=== PATIENT | female | born 1980 | race Caucasian/White ===

== ENCOUNTER 2021-02-13 12:02 | Emergency (ER) | payer BC, SELFPAY ==
[2021-02-13 12:12] VITALS: BP 112/78; PULSE 84; RESP 18; TEMP 36.7; O2SAT 98; BMI 31.3
--- NOTE | 2021-02-13 14:23 | PC.NURSE ---
PT EATING [employer], WAS ASKED TO WAIT UNTIL AFTER MD EVALUATION
--- NOTE | 2021-02-13 14:39 | ED_ITS ---
HPI - General Adult General Chief complaint: Dizziness Stated complaint: DIZZY Time Seen by Provider: 02/13/21 14:37 Source: patient and family Limitations: no limitations History of Present Illness HPI narrative: This is a 40-year-old female who had gradual onset of a headache last night while at a alliance party. She said there was ?a lot of commotion? at the alliance party which she believes brought on her headache. She later around 02:00 o'clock in the morning wanted to sleep and had available some 0.5 mg lorazepam tablets, took several. Today the patient was drowsy and lightheaded and continued to have a headache. She is feeling little better now, her friend/family member who is with her states this is the best she has looked all day. She denies any visual changes. She did vomit once this morning, but notes that she was drinking alcohol last night. She denies any abdominal pain. She denies any focal weakness or numbness in her arms or of legs or face. The headache is generalized, dull and associated with some neck pain, however she states the neck pain has been more chronic. She denies fever.. Patient denies being . She also denies any suicidal ideation, states she took the lorazepam simply because she wanted to sleep Related Data Allergies Allergy/AdvReac Type Severity Reaction Status Date / Time No Known Allergies Allergy Unverified 04/22/20 15:04 Review of Systems Review of Systems: Yes all other systems are reviewed and are negative Constitutional: Constitutional: Reports as per HPI, Denies fever(s) and Report s headache(s) Eyes: Eyes: Reports as per HPI and Reports no additional eye complaints ENT: Reports system reviewed and no additional complaints, except as documented, Reports as per HPI, Reports headache(s), Denies nasal congestion, Denies nasal discharge and Denies sore throat Cardiovascular: Cardiovascular: Reports as per HPI, Denies chest pain and Denies dyspnea Respiratory: Respiratory: Reports as per HPI, Denies cough and Denies dyspnea Gastrointestinal: Gastrointestinal: Reports as per HPI, Denies abdominal pain, Denies diarrhea and Reports vomiting (Once this morning) Genitourinary: Genitourinary: Reports as per HPI, Denies hematuria, Denies urinary frequency and Denies dysuria Musculoskeletal: Musculoskeletal: Reports no additional musculoskeletal complaints and Denies numbness Integumentary/Breasts: Skin/Breast: Reports as per HPI and Denies rash Neurologic: Reports as per HPI, Reports headache(s), Denies focal weakness, Denies numbness and Denies Sensory deficit (Neuro) Psychiatric: Psychiatric: Reports no additional psychiatric complaints and Reports as per HPI Endocrine: Endocrine: Reports no additional endocrine complaints and Reports as per HPI Hematologic/Lymphatic: Hematologic/Lymphatic: Reports no additional hematologic/lymphatic complaints, Reports as per HPI and Reports other (No peripheral edema) [facility] Past Medical History Medical History (Updated 02/14/21 @ 00:01 by Background Daemon) Hypothyroid Social History Social History Advance Directives: No Advance Directives Information Provided: Yes Patient : No Physical Exam Vital Signs: Vital Signs: Last Vital Signs Temp 98.0 F 02/13/21 12:12 Pulse 84 02/13/21 12:12 Resp 18 02/13/21 12:12 BP 112/78 02/13/21 12:12 Pulse Ox 98 02/13/21 12:12 Body Mass Index 31.3 Const: Other: Patient is sitting up in a chair, eating a hamburger. Patient appears mildly sedated but answers questions appropriately General: cooperative, no acute distress and alert Orientation/consciousness: patient oriented x3 HENMT: Head: Yes normal to inspection Eyes: General: appearance normal, both eyes and all related structures Eyelids: Yes eyelids normal Conjunctivae: conjunctivae normal Pupils: Equal, round and reactive pupils present Neck: Neck: Yes normal visual inspection and Yes supple Chest: Chest palpation & inspection: normal inspection of the chest Resp: Effort & Inspection: normal respiratory effort Auscultation: clear to auscultation bilaterally Cardio: Rate: regular rate Rhythm: regular rhythm Heart sounds: S1 normal heart sound present, S2 normal heart sound present, no gallops, no murmurs and no rubs GI: Palpation (GI): Soft to palpation, nontender and Other GI palpation findings present (Non-distended) Auscultation: normal bowel sounds Skin: General skin exam: no rashes or lesions noted Neuro: General: patient oriented x3, no focal motor deficits and CN's II-XI intact bilaterally Cranial nerves: Yes Equal, round and reactive pupils present Cognition (Neuro): normal cognition Motor exam (neuro): 5/5 motor strength present throughout Sensory Exam: No Sensory deficit (Neuro) Extrem: General: Yes normal to inspection and Yes no pedal edema Psych: Appearance: grossly normal Affect: normal affect Medical Decision Making MDM Narrative Medical decision making narrative: Patient with an accidental overdose of lorazepam, was trying to make herself sleep, denies suicidal ideation. Patient was initially drowsy but later was sitting up eating lunch. Patient also had some symptoms from having drunk alcohol in excess last night. Patient feeling b eliana upon re-evaluation, safe for outpatient follow-up Lab Data Lab results reviewed: Yes I reviewed the patient's lab results. Result diagrams: 02/13/21 15:09 02/13/21 15:09 Labs: Lab Results 02/13/21 02/13/21 Range/Units 15: 15:09 WBC 10.0 (4.8-10.8) X10*3/uL RBC 4.15 L (4.20-5.50) X10*6/uL Hgb 12.6 (12.0-16.0) g/dl Hct 38.3 (37-47) % MCV 92.3 (80-98) fL MCH 30.4 (27.0-33.0) pg MCHC 32.9 (31.0-35.0) g/dl RDW 13.5 (11.0-16.0) % Plt Count 199 (160-400) X10*3/uL MPV 9.8 (9.4-12.3) fL Immature Gran % (Auto) 0.3 (0.0-0.4) % Neut % (Auto) 78.3 H (45-73) % Lymph % (Auto) 15.8 L (20-40) % [place] % (Auto) 5.4 (2-11) % Eos % (Auto) 0.1 (0-4) % Baso % (Auto) 0.1 (0-2) % Lymph # (Auto) 1.6 (1.2-4.9) X10*3/uL [place] # (Auto) 0.5 (0.1-1.2) X10*3/uL Eos # (Auto) 0.0 (0.0-0.4) X10*3/uL Baso # (Auto) 0.0 (0.0-0.2) X10*3/uL Abs Immat Gran (auto) 0.03 (0.00-0.03) X10*3/uL Absolute Neuts (auto) 7.9 (2.0-8.3) X10*3/uL Absolute Nucleated RBC 0.000 (0.0-0.012) X10*3/uL Nucleated RBC % (auto) 0.0 (0.0-0.2) /100WBC Sodium 141 (135-145) mmol/L Potassium 4.4 (3.3-5.1) mmol/L Chloride 105 (96-108) mmol/L Carbon Dioxide 27 (22-29) mmol/L Anion Gap 13 (12-20) BUN 11 (9-16) mg/dL Creatinine 0.76 (0.5-1.4) mg/dL Estim Creat Clear Calc 96.7 Estimated GFR > 60 Random Glucose 99 (60-115) mg/dL Calcium 9.5 (8.4-10.2) mg/dL Total Bilirubin 1.1 H (0.0-1.0) mg/dL AST 28 (5-31) U/L ALT 28 (0-31) U/L Alkaline Phosphatase 43 (39-117) U/L Total Protein 7.4 (6.5-8.0) g/dL Albumin 4.3 (3.5-5.0) g/dL Discharge Plan Discharge Clinical Impression: Headache, Lorazepam overdose Patient Disposition: Home, Self-Care Instructions: General Headache (ED) Additional Instructions: Use ibuprofen as needed for recurring headache. Drink plenty of fluids. Return for any new or worsened symptoms. Interventions: ED Discharge Assessment Last Done: 02/13/21 16:21 Discharge Date/Time: 02/13/21 16:21
[2021-02-13] MEDS: 0.9 % Sodium Chloride 1,000 ML 999 ML IV (15:13)
[2021-02-13] MEDS: Ketorolac Tromethamine 15 MG/ML VIAL IVPUSH (15:13)
[2021-02-13] MEDS: Metoclopramide HCl 10 MG/2 ML VIAL IVPUSH (15:13)
[2021-02-13 15:14] LABS: MANUAL DIFF FLAG NO
[2021-02-13 15:15] LABS: Basophils Percent Auto 0.1 % (0-2); Eosinophils Percent Auto 0.1 % (0-4); Hematocrit 38.3 % (37-47); Hemoglobin 12.6 g/dl (12.0-16.0); Imm Gran Abs Auto 0.03 X10*3/uL (0.00-0.03); Imm Gran Pct Auto 0.3 % (0.0-0.4); Lymphocytes Absolute Auto 1.6 X10*3/uL (1.2-4.9); Lymphocytes Percent Auto 15.8 % (20-40); Mean Corpuscular HGB Conc 32.9 g/dl (31.0-35.0); Mean Corpuscular Hemoglobin 30.4 pg (27.0-33.0); Mean Corpuscular Volume 92.3 fL (80-98); Mean Platelet Volume 9.8 fL (9.4-12.3); Monocytes Absolute Auto 0.5 X10*3/uL (0.1-1.2); Monocytes Percent Auto 5.4 % (2-11); Neutrophils Absolute Auto 7.9 X10*3/uL (2.0-8.3); Neutrophils Percent Auto 78.3 % (45-73); Platelet Count 199 X10*3/uL (160-400); Red Blood Count 4.15 X10*6/uL (4.20-5.50); Red Cell Distribution Width 13.5 % (11.0-16.0)
[2021-02-13 15:43] LABS: Alanine Aminotransferase 28 U/L (0-31); Albumin Level 4.3 g/dL (3.5-5.0); Alkaline Phosphatase 43 U/L (39-117); Anion Gap 13 (12-20); Aspartate Amino Transferase 28 U/L (5-31); Bilirubin Total 1.1 mg/dL (0.0-1.0); Blood Urea Nitrogen 11 mg/dL (9-16); Calcium 9.5 mg/dL (8.4-10.2); Carbon Dioxide 27 mmol/L (22-29); Chloride 105 mmol/L (96-108); Creatinine Clr Calc Pharmacy 96.7; Estimated Glomerular Filt Rate > 60; Glucose Random 99 mg/dL (60-115); Potassium 4.4 mmol/L (3.3-5.1); Sodium 141 mmol/L (135-145); Total Protein 7.4 g/dL (6.5-8.0)
== END 2021-02-13 16:21 | disposition home or self-care (01) ==
PROVIDERS: Emergency Provider Emergency Medicine; PCP Nurse Practitioner Family
DX: T42.4X1A Poisoning by benzodiazepines, accidental (unintentional), initial encounter (principal); R40.0 Somnolence; Y92.9 Unspecified place or not applicable; R51.9 Headache, unspecified
CPT/HCPCS: 36415; 80053; 85025; 96361; 96374; 96375; 99283; 99284; J1885; J2765

== ENCOUNTER 2024-08-31 17:50 | Emergency (ER) | payer BC, SELFPAY ==
--- NOTE | ~2024-08-31 | US_ITS ---
CLINICAL HISTORY: RUQ pain US abdomen limited Comparison: CT of the abdomen from 10/02 2018 Findings: Question mild intrahepatic biliary ductal dilatation. However, imaged CBD is nondilated measuring 0.5 cm. Mild wall thickening of the gallbladder is likely due to underdistention at the time of the imaging. No pericholecystic fluid at this time. No definite shadowing stones in the gallbladder lumen, where reverberation artifacts are noted. A sonographic Robins's sign is not noted by the technologist. Portions of the gallbladder, including fundus are obscured. Imaged aorta and IVC are unremarkable. No right upper quadrant ascites or right pleural effusion in the [id number]. Majority of the pancreas is obscured. Portions of liver and right kidney obscured by side of the artifacts. Imaged liver measures 17 cm by ultrasound. Portions of the liver demonstrate increased echogenicity relative right kidney as can be seen with steatotic change. Imaged kidney measures 11.1 cm long axis. No hydronephrosis of the imaged kidney. Doppler: Hepatopetal flow in the imaged main portal vein with peak velocity of 40 centimeters/second. No thrombosis of the partially imaged main portal vein. IMPRESSION: 1. Negative gallbladder ultrasound. No definite ultrasound findings of acute cholecystitis, with contracted gallbladder. 2. Imaged CBD is nondilated. This document has been electronically signed by: Rolf Redd MD on 08/31/2024 19:31:13
--- NOTE | ~2024-08-31 | XR_ITS ---
CLINICAL HISTORY: epigastric pain 2 view chest x-ray Comparison: None Findings: No consolidation or effusion. No pneumothorax. Cardiac silhouette and mediastinal contours are within normal limits. No acute fracture. IMPRESSION: No consolidation. This document has been electronically signed by: Rolf Redd MD on 08/31/2024 19:26:56
--- NOTE | 2024-08-31 17:58 | ED_ITS ---
HPI - General Adult General Chief complaint: Abdominal Pain Stated complaint: upper right abd pain x2days Time Seen by Provider: 08/31/24 20:08 Source: patient and family (patient's ) Mode of arrival: ambulatory Limitations: no limitations History of Present Illness ED Provider: Sravani Robledo PA-C HPI narrative: Patient is a 44 year old assigned female at with no reported medical history presenting to the emergency department today with right upper quadrant abdominal pain, epigastric pain, and nausea. Patient states that over the last 2 days she has had right upper quadrant abdominal pain and nausea. Patient denies any dizziness, lightheadedness, vomiting, fever, chills, blurry vision, double vision, loss of vision, chest pain, difficulty breathing, shortness of breath, back pain, night sweats, pain with urination, increased urinary frequency, increased urinary urgency, blood in her urine or stool, syncope or a near syncopal episode, recent trauma or falls, bowel incontinence, bladder incontinence, or any other complaints at this time. Onset (ago): day(s) (2) Relieving factors: none Exacerbating factors: none Associated symptoms: nausea/vomiting Treatments prior to arrival: none Related Data Allergies Allergy/AdvReac Type Severity Reaction Status Date / Time cephalexin [From Keflex] Allergy Nausea and Verified 08/31/24 18:00 Vomiting Review of Systems 2 Constitutional: Constitutional: Reports no additional constitutional complaints, Denies chills, Denies fever(s) and Denies night sweats Eyes: Eyes: Reports no additional eye complaints, Denies blurry vision, Denies change in vision, Denies diplopia, Denies eye discharge, Denies loss of vision and Denies eye pain ENT: Denies dizziness Cardiovascular: Cardiovascular: Reports no additional cardiovascular complaints, Denies chest pain, Denies lightheadedness, Denies Loss of Consciousness and Denies dyspnea Respiratory: Respiratory: Reports no additional respiratory complaints and Denies dyspnea Gastrointestinal: Gastrointestinal: Reports no additional gastrointestinal complaints, Reports abdominal pain, Denies melena, Denies hematochezia, Denies change in bowel habits, Denies change in stool character, Reports nausea and Denies vomiting Genitourinary: Genitourinary: Denies hematuria, Denies urinary frequency, Denies dysuria, Denies urinary incontinence, Denies urinary hesitancy and Denies urinary urgency Musculoskeletal: Musculoskeletal: Reports no additional musculoskeletal complaints, Denies numbness and Denies tingling Neurologic: Denies dizziness, Denies loss of vision, Denies numbness and Denies tingling Psychiatric: Psychiatric: Reports no additional psychiatric complaints Endocrine: Endocrine: Reports no additional endocrine complaints Hematologic/Lymphatic: Hematologic/Lymphatic: Reports no additional hematologic/lymphatic complaints Allergic/Immunologic: Allergic/Immunologic: Reports no additional allergic/immunologic complaints PMFSH Past Medical History Attestation statement: The following information was validated with the patient. Source: old records reviewed and nursing notes reviewed Medical History Hypothyroid Social History Social History Advance Directives: No Advance Directives Information Provided: No Do you have a plan to hurt others: No Plan Physical Exam ED Vital Signs: Vital Signs - 24 hr 08/31/24 17:59 08/31/24 19:22 Temperature 98.5 F 98.1 F Pulse Rate 89 94 Respiratory Rate 18 16 Blood Pressure 117/71 117/73 Pulse Oximetry 98 97 Oxygen Delivery Method Room Air Room Air BMI result Body Mass Index 30.2 Const General: cooperative, no acute distress, alert and awake Nutritional Appearance: well nourished Orientation/consciousness: patient oriented x3 Limitations: no limitations HENMT Head: Yes normal to inspection and Yes atraumatic Ears: hearing grossly normal bilaterally and external ears normal General nose exam: Normal external nose present, no nasal discharge noted and no epistaxis Face and sinus: Yes normal facial exam, No abrasion and No laceration Mouth: Normal oral and palatal mucosa present, no drooling and no muffled voice Eyes General: appearance normal, both eyes and all related structures Periorbital: periorbital findings normal Eyelids: Yes eyelids normal Conjunctivae: conjunctivae normal Pupils: Equal, round and reactive pupils present EOM: EOMs intact bilaterally Neck Neck: Yes normal visual inspection, Yes full ROM and Yes no lymphadenopathy Chest Chest palpation & inspection: normal inspection of the chest Resp Effort & Inspection: normal respiratory effort and able to speak in complete sentences GI Inspection: Yes normal to inspection Neuro General: patient oriented x3 and moves all extremities Cranial nerves: Yes Equal, round and reactive pupils present Cognition (Neuro): normal cognition Extrem General: Yes normal to inspection, Yes full ROM and Yes capillary refill normal Psych Appearance: grossly normal Mental Status: mental status grossly normal Affect: normal affect Attitude: cooperative Thought process: Normal thought process present Thought content: Normal thought content present Insight: Good insight present (Psych) Course Course Course Narrative: RME performed by Sravani Robledo PA-C. Patient is a 43 year old assigned female at presenting to the emergency department with right upper quadrant abdominal pain. Detailed physical exam and review of systems are deferred to the infant lead teacher. EKG, labs, imaging, and swabs ordered. Patient placed back in the waiting room pending room availability and results. Medical Decision Making Medical Decision Making [facility] Narrative: Patient is a 43 year old assigned female at with no reported medical history presenting to the emergency department today with abdominal pain / epigastric pain / and nausea. Patient's physical exam was unremarkable. Patient's blood work was unremarkable. Patient's urine showed no acute process. Patient's EKG was unremarkable. Patient's chest x-ray and abdominal ultrasound showed no acute process. I explained my physical exam findings as well as all test results to the patient and the patient's . I answered all questions asked by the patient and the patient's . I stressed the importance of the patient taking her medication as directed (either prescribed or as the over the counter packaging recommends). I stressed the importance of the patient following up with her primary care provider. I stressed the importance of the patient returning to the emergency department immediately if her symptoms were to worsen or if she were to develop any dizziness, shortness of breath, difficulty breathing, chest pain, blurry vision, loss of vision, nausea, vomiting, abdominal pain, fever, chills, back pain, or any other complaints. Patient verbalized agreement and understanding with this treatment plan and discharge. Differential Diagnosis Differential Diagnoses: The differential diagnosis associated with the presentation includes Abdominal pain Epigastric pain Cholecystitis Admission/Observation Consideration of admission/observation: Escalation of care including admission/observation considered Patient would have been admitted to the hospital had her work up had any findings where hospital admission was appropriate and her clinical presentation warranted hospital admission. Lab Data [facility] Lab Attestation statement: I reviewed the patient's lab results. My interpretation of these results are in the [facility] Rationale portion of this note. 08/31/24 18:28 08/31/24 18:28 Labs: Lab Results 01/26/25 Range/Units 18:28 WBC 8.5 (4.8-10.8) X10*3/uL RBC 3.75 L (4.20-5.50) X10*6/uL Hgb 11.5 L (12.0-16.0) g/dl Hct 33.8 L (37.0-47.0) % MCV 90.1 (80.0-98.0) fL MCH 30.7 (27.0-33.0) pg MCHC 34.0 (31.0-35.0) g/dl RDW 12.9 (11.0-16.0) % Plt Count 240 (160-400) X10*3/uL MPV 9.3 L (9.4-12.3) fL Immature Gran % (Auto) 0.5 H (0.0-0.4) % Neut % (Auto) 50.7 (45-73) % Lymph % (Auto) 41.1 H (20-40) % [place] % (Auto) 6.9 (2-11) % Eos % (Auto) 0.4 (0-4) % Baso % (Auto) 0.4 (0-2) % Lymph # (Auto) 3.5 (1.2-4.9) X10*3/uL [place] # (Auto) 0.6 (0.1-1.2) X10*3/uL Eos # (Auto) 0.0 (0.0-0.4) X10*3/uL Baso # (Auto) 0.0 (0.0-0.2) X10*3/uL Abs Immat Gran (auto) 0.04 H (0.00-0.03) X10*3/uL Absolute Neuts (auto) 4.3 (2.0-8.3) x10*3/uL Absolute Nucleated RBC 0.000 (0.0-0.012) X10*3/uL Nucleated RBC % (auto) 0.0 (0.0-0.2) /100WBC Sodium 140 (135-145) mmol/L Potassium 4.3 (3.3-5.1) mmol/L Chloride 106 (96-108) mmol/L Carbon Dioxide 29 (22-29) mmol/L Anion Gap 9 L (12-20) BUN 12 (9-16) mg/dL Creatinine 0.76 (0.5-1.4) mg/dL Estim Creat Clear Calc 95.5 Estimated GFR > 60 Random Glucose 95 (60-115) mg/dL Calcium 8.8 D (8.4-10.2) mg/dL Magnesium 2.2 (1.6-2.6) mg/dL Total Bilirubin 0.4 (0.0-1.0) mg/dL AST 20 (5-31) U/L ALT 18 (0-31) U/L Alkaline Phosphatase 37 L (39-117) U/L Troponin I High Sens < 2.7 (<3.5-17.0) ng/L Total Protein 7.0 (6.5-8.0) g/dL Albumin 3.7 (3.5-5.0) g/dL Urine Color Yellow Urine Appearance Cloudy Urine pH 8.0 (5.0-9.0) Ur Specific [place] 1.020 (1.005-1.025) Urine Protein Negative (Neg-Trace) mg/dL Urine Glucose (UA) Negative (Negative) mg/dL Urine Ketones Negative (Negative) mg/dL Urine Blood Negative (Negative) Urine Nitrite Negative (Negative) Ur Leukocyte Esterase Negative (Negative) Influenza Type A (PCR) NEGATIVE (Negative) Influenza Type B (PCR) NEGATIVE (Negative) RSV RNA Qual (PCR) NEGATIVE (Negative) SARS-CoV-2 RNA (RT-PCR) NEGATIVE (Negative) Independent Interpretation I performed an independent interpretation of an: EKG, Plain X-Ray and Ultrasound Interpretation: My interpretation is in agreement with the radiologist's impression of these imaging studies. L CLINICAL HISTORY: RUQ pain US abdomen limited Comparison: CT of the abdomen from 10/02 2018 Findings: Question mild intrahepatic biliary ductal dilatation. However, imaged CBD is nondilated measuring 0.5 cm. Mild wall thickening of the gallbladder is likely due to underdistention at the time of the imaging. No pericholecystic fluid at this time. No definite shadowing stones in the gallbladder lumen, where reverberation artifacts are noted. A sonographic Robins's sign is not noted by the technologist. Portions of the gallbladder, including fundus are obscured. Imaged aorta and IVC are unremarkable. No right upper quadrant ascites or right pleural effusion in the [id number]. Majority of the pancreas is obscured. Portions of liver and right kidney obscured by side of the artifacts. Imaged liver measures 17 cm by ultrasound. Portions of the liver demonstrate increased echogenicity relative right kidney as can be seen with steatotic change. Imaged kidney measures 11.1 cm long axis. No hydronephrosis of the imaged kidney. Doppler: Hepatopetal flow in the imaged main portal vein with peak velocity of 40 centimeters/second. No thrombosis of the partially imaged main portal vein. IMPRESSION: 1. Negative gallbladder ultrasound. No definite ultrasound findings of acute cholecystitis, with contracted gallbladder. 2. Imaged CBD is nondilated. This document has been electronically signed by: Rolf Redd MD on 08/31/2024 19:31:13 Dictated By: Rolf Redd MD Signed By: Electronically signed by Rolf Redd MD 08/31/241930 CLINICAL HISTORY: epigastric pain 2 view chest x-ray Comparison: None Findings: No consolidation or effusion. No pneumothorax. Cardiac silhouette and mediastinal contours are within normal limits. No acute fracture. IMPRESSION: No consolidation. This document has been electronically signed by: Rolf Redd MD on 08/31/2024 19:26:56 Dictated By: Rolf Redd MD Signed By: Electronically signed by Rolf Redd MD 08/31/241927 Vent. Rate: 82 BPM Atrial Rate: 82 BPM P-R Int: 144 ms QRS Dur: 84 ms QT Int: 376 ms P-R-T Axes: 49 30 22 degrees QTcB Int: 439 ms Normal sinus rhythm Normal ECG No previous ECGs available DD/ 1820 Radiology Impression Discussion of test interpretation with radiology: I have reviewed the radiologist's reading. Independent Historian Clinical information obtained from an independent historian. History obtained from or confirmed by: Spouse (patient's provided additional history and confirmed the history provided by the patient.) Tests considered The following testing was considered but not selected: I considered obtaining a CT of the abdomen/pelvis however, the patient's current clinical presentation and work up did not warrant this. I discussed this with the patient and her who verbalized understanding and agreement. Discharge Plan Discharge Clinical Impression: Acute epigastric pain Patient Disposition: Home, Self-Care Instructions: Epigastric Pain (ED) Additional Instructions: Follow up with your primary care provider. Return to the emergency department immediately if your symptoms worsen or if you develop any dizziness, shortness of breath, difficulty breathing, chest pain, blurry vision, loss of vision, nausea, vomiting, abdominal pain, fever, chills, back pain, or any other complaints. Referrals: Katherine Quijano NP [Primary Care Provider] - Interventions: ED Discharge Assessment Last Done: 08/31/24 20:13 Print Language: Algerian
[2024-08-31 17:59] VITALS: BP 117/71; PULSE 89; RESP 18; TEMP 36.9; O2SAT 98; BMI 30.2
--- NOTE | 2024-08-31 18:00 | ECG_ITS ---
Test Reason : EPIGASTRIC PAIN Blood Pressure : */* mmHG Vent. Rate : 82 BPM Atrial Rate : 82 BPM P-R Int : 144 ms QRS Dur : 84 ms QT Int : 376 ms P-R-T Axes : 49 30 22 degrees QTcB Int : 439 ms Normal sinus rhythm Normal ECG No previous ECGs available Referred By: Sravani Robledo Electronically Signed By: MUNDO CHAVEZ
[2024-08-31 18:40] LABS: MANUAL DIFF FLAG NO
[2024-08-31 18:42] LABS: Basophils Percent Auto 0.4 % (0-2); Eosinophils Percent Auto 0.4 % (0-4); Hematocrit 33.8 % (37.0-47.0); Hemoglobin 11.5 g/dl (12.0-16.0); Imm Gran Abs Auto 0.04 X10*3/uL (0.00-0.03); Imm Gran Pct Auto 0.5 % (0.0-0.4); Lymphocytes Absolute Auto 3.5 X10*3/uL (1.2-4.9); Lymphocytes Percent Auto 41.1 % (20-40); Mean Corpuscular Hemoglobin 30.7 pg (27.0-33.0); Mean Corpuscular Volume 90.1 fL (80.0-98.0); Mean Platelet Volume 9.3 fL (9.4-12.3); Monocytes Absolute Auto 0.6 X10*3/uL (0.1-1.2); Monocytes Percent Auto 6.9 % (2-11); Neutrophils Absolute Auto 4.3 x10*3/uL (2.0-8.3); Neutrophils Percent Auto 50.7 % (45-73); Platelet Count 240 X10*3/uL (160-400); Red Blood Count 3.75 X10*6/uL (4.20-5.50); Red Cell Distribution Width 12.9 % (11.0-16.0); White Blood Count 8.5 X10*3/uL (4.8-10.8)
[2024-08-31 18:43] LABS: Appearance Urine Cloudy; Color Urine Yellow; Glucose Urine UA Negative (Negative); Leukocyte Esterase Urine Negative (Negative); Nitrite Urine Negative (Negative); Urine Blood Negative (Negative); Urine Ketones Negative (Negative); Urine Protein Negative (Neg-Trace)
[2024-08-31 18:56] LABS: Alanine Aminotransferase 18 U/L (0-31); Albumin Level 3.7 g/dL (3.5-5.0); Alkaline Phosphatase 37 U/L (39-117); Anion Gap 9 (12-20); Aspartate Amino Transferase 20 U/L (5-31); Bilirubin Total 0.4 mg/dL (0.0-1.0); Blood Urea Nitrogen 12 mg/dL (9-16); Calcium 8.8 mg/dL (8.4-10.2); Carbon Dioxide 29 mmol/L (22-29); Chloride 106 mmol/L (96-108); Creatinine Clr Calc Pharmacy 95.5; Estimated Glomerular Filt Rate > 60; Glucose Random 95 mg/dL (60-115); Magnesium 2.2 mg/dL (1.6-2.6); Potassium 4.3 mmol/L (3.3-5.1); Sodium 140 mmol/L (135-145)
[2024-08-31 19:04] LABS: Troponin-I High Sensitivity < 2.7 ng/L (<3.5-17.0)
[2024-08-31 19:17] LABS: Influenza A PCR NEGATIVE (Negative); Influenza B PCR NEGATIVE (Negative); Resp Syncy Virus RNA Qual PCR NEGATIVE (Negative); SARS COV2 PCR INHOUSE NEGATIVE (Negative)
[2024-08-31 19:22] VITALS: BP 117/73; PULSE 94; RESP 16; TEMP 36.7; O2SAT 97
[2024-08-31 20:13] VITALS: BP 117/73; PULSE 94; RESP 16; TEMP 36.7; O2SAT 97
--- NOTE | 2024-08-31 20:13 | PC.NURSE ---
Reeval by RME in triage, cleared for dc home.
== END 2024-08-31 20:14 | disposition home or self-care (01) ==
PROVIDERS: Physician Assistant Medical; Emergency Provider Emergency Medicine Emergency Medical Services; PCP Nurse Practitioner Family
DX: R10.2 Pelvic and perineal pain (principal); R10.11 Right upper quadrant pain; R10.13 Epigastric pain; R11.2 Nausea with vomiting, unspecified; Z79.899 Other long term (current) drug therapy; Z03.818 Encounter for observation for suspected exposure to other biological agents ruled out
CPT/HCPCS: 0241U; 36415; 71046; 76705; 80053; 81003; 83735; 84484; 85025; 93005; 99283

== ENCOUNTER → 2024-08-31 17:59 | Outpatient (BNV) | payer BC, SELFPAY | PROVIDERS: PCP Nurse Practitioner Family; Visit Provider Radiology Neuroradiology | DX: R10.11 Right upper quadrant pain (principal); R10.13 Epigastric pain | CPT/HCPCS: 71046; 76705 ==

== ENCOUNTER → 2024-08-31 18:00 | Outpatient (BNV) | payer BC, SELFPAY | PROVIDERS: Emergency Provider Emergency Medicine Emergency Medical Services; PCP Nurse Practitioner Family; Visit Provider Internal Medicine | DX: R10.13 Epigastric pain (principal) | CPT/HCPCS: 93010 ==

== ENCOUNTER 2025-04-22 20:39 | Emergency (ER) | payer BC, SELFPAY ==
--- NOTE | ~2025-04-22 | CT_ITS ---
CLINICAL HISTORY: Pleurisy, SOB, + D Dimer(254) CT angiography chest with contrast. 3D Postprocessing. Comparison: CR - XR CHEST 1V - 04/22/25 21:13 EDT CR - XR CHEST 2V - 08/31/24 18:[address]/IL/SR - ABD PELVIS WO CONT [id number] - 10/02/18 00:55 EST Findings: The heart size is normal. RV/LV ratio is normal. The thoracic aorta is normal caliber. No pulmonary artery filling defects. The visualized thyroid and mediastinum are unremarkable. The lungs are clear. The visualized upper abdomen is unremarkable. The bones are intact. IMPRESSION: 1. No pulmonary emboli. This document has been electronically signed by: Evens Nogueira MD on 04/23/2025 02:08:51
--- NOTE | ~2025-04-22 | XR_ITS ---
CLINICAL HISTORY: SOB 1 view chest x-ray Comparison: CR - XR CHEST 2V - 08/31/24 18:20 EST Findings: The lungs are clear. Normal size heart. No acute fracture. IMPRESSION: 1. No acute findings. This document has been electronically signed by: Evens Nogueira MD on 04/22/2025 21:48:55
--- NOTE | 2025-04-22 20:41 | ECG_ITS ---
Test Reason : CP Blood Pressure : */* mmHG Vent. Rate : 71 BPM Atrial Rate : 71 BPM P-R Int : 162 ms QRS Dur : 80 ms QT Int : 382 ms P-R-T Axes : 64 36 31 degrees QTcB Int : 415 ms Normal sinus rhythm with sinus arrhythmia Normal ECG When compared with ECG of 31-Aug-2024 18:20, No significant change was found Referred By: Generic ED Physician Electronically Signed By: MUNDO CHAVEZ
[2025-04-22 20:53] VITALS: BP 122/80; PULSE 72; RESP 16; TEMP 36.8; O2SAT 99; BMI 30.1
[2025-04-22 20:53] LABS: MANUAL DIFF FLAG NO
[2025-04-22 20:54] LABS: Hematocrit 33.0 % (37.0-47.0); Hemoglobin 11.5 g/dl (12.0-16.0); Imm Gran Abs Auto 0.02 X10*3/uL (0.00-0.03); Imm Gran Pct Auto 0.2 % (0.0-0.4); Lymphocytes Absolute Auto 3.5 X10*3/uL (1.2-4.9); Mean Corpuscular HGB Conc 34.8 g/dl (31.0-35.0); Mean Corpuscular Hemoglobin 30.7 pg (27.0-33.0); Mean Corpuscular Volume 88.2 fL (80.0-98.0); NRBC Abs Auto 0.000 X10*3/uL (0.0-0.012); NRBC Pct Auto 0.0 /100WBC (0.0-0.2); Platelet Count 198 X10*3/uL (160-400); Red Blood Count 3.74 X10*6/uL (4.20-5.50); White Blood Count 8.4 X10*3/uL (4.8-10.8)
[2025-04-22 21:13] LABS: Albumin Level 4.2 g/dL (3.5-5.0); Calcium 9.3 mg/dL (8.4-10.2); Chloride 106 mmol/L (96-108); Potassium 3.9 mmol/L (3.3-5.1); Sodium 141 mmol/L (135-145)
[2025-04-22 21:29] LABS: COVID-19 Test Negative (Negative); IDNOW Serial# 152EDE1D; IDNOW Serial# 16C4AD1C
[2025-04-22 21:30] LABS: Influenza B2 Negative (Negative)
[2025-04-22 21:39] LABS: Alanine Aminotransferase 23 U/L (0-31); Alkaline Phosphatase 42 U/L (39-117); Anion Gap 10 (12-20); Aspartate Amino Transferase 25 U/L (5-31); Blood Urea Nitrogen 14 mg/dL (9-16); Carbon Dioxide 29 mmol/L (22-29); Creatinine Clr Calc Pharmacy 92.1; Estimated Glomerular Filt Rate > 60; Total Protein 7.1 g/dL (6.5-8.0); Troponin-I High Sensitivity < 2.7 ng/L (<3.5-17.0)
[2025-04-22 22:06] VITALS: PULSE 77
--- NOTE | 2025-04-22 22:36 | ED_ITS ---
HPI - Chest Pain General Chief Complaint: Chest Pain Stated Complaint: Tightness in Chest, light headedness, dizziness Time Seen by Provider: 04/22/25 22:05 Source: patient Mode of arrival: ambulatory Limitations: no limitations History of Present Illness ED Provider: Juanito MÁRQUEZ HPI narrative: The patient is a 44-year-old female with a histor of hypothyroidism, with a admitted recent noncompliance with her medication, presenting to the ED for evaluation of chest tightness and shortness of breath which began this evening. The patient reports she has been experiencing severe fatigue and malaise over the past few days, this evening however was lying down when she developed pleuritic substernal chest pain radiating into her back with the associated shortness of breath and sensation of inability to take a full breath. The patient reports associated nonproductive cough, denies associated hemoptysis, fever/chills, nausea, vomiting, diaphoresis, abdominal pain, dysuria, hematuria, irregular vaginal bleeding, constipation, diarrhea, hematochezia, or melena. The patient reports last week she was experiencing UTI type symptoms and took antibiotics she had ?left over? from a previous UTI. Patient reports her symptoms resolved and she was feeling back to baseline prior to feeling unwell the past few days. The patient denies any recent sick contacts, denies fall or other trauma. The patient denies recent travel, lower extremity complaint, or history of coagulopathy. Related Data Allergies Allergy/AdvReac Type Severity Reaction Status Date / Time cephalexin (From Keflex) Allergy Nausea and Verified 04/22/25 20:58 Vomiting Review of Systems 2 Review of Systems: Yes all other systems are reviewed and are negative PMFSH Past Medical History Medical History Hypothyroid Physical Exam 2 Vital Signs: Vital Signs: Last Vital Signs Temp 98.1 F 04/23/25 02:36 Pulse 67 04/23/25 02:36 Resp 14 04/23/25 02:36 BP 112/52 L 04/23/25 02:36 Pulse Ox 96 04/23/25 02:36 O2 Del Method Room Air 04/23/25 02:36 BMI result Body Mass Index 30.1 CONSTITUTIONAL: The patient appears non-toxic, well nourished and in no acute distress. Vital signs as documented. HEAD: Atraumatic, normocephalic. EYES: EOMs grossly intact, pupils equal, conjunctiva clear, no exudate. ENT: Nares patent, no discharge. Airway patent, no audible stridor, visible mucosa is pink and moist without noted lesions. NECK: Trachea is midline, no obvious masses or gross abnormalities. CHEST: Symmetric movement, normal appearance. LUNGS: LS present and CTAB, no w/r/r. Non-labored work of breathing. CARDIAC: Regular Rhythm, S1/S2 appreciated, no murmurs, rubs or gallops. ABDOMEN: Abdomen soft and non-tender x4 quadrants, no palpable masses or organomegaly. : Deferred. EXTREMITIES: Normal tone, moves all extremities spontaneously without reported pain. No obvious acute injury or deformity noted. NEURO: Alert and oriented x3, CN II-XII appear grossly intact. Cerebellar Functioning grossly intact. No obvious sensory or motor deficits. Speech clear and appropriate. PSYCH: normal affect, appropriate eye contact, fluid speech, with appropriate response to questioning. No reported suicidality or homicidality. SKIN: Warm, dry, color appropriate, normal turgor. No rashes noted. Medications Administered Discontinued Medications Generic Name Dose Route Start Last Admin Trade Name Freq PRN Reason Stop Dose Admin Sodium Chloride 1,000 mls @ 999 mls/hr 04/22/25 22:45 04/22/25 23:38 Ns IV 04/22/25 23:45 Infused .Q1H1M JIMY Infusion Iohexol 75 ml 04/23/25 00:55 04/23/25 00:56 Iohexol 350 Mg/Ml 100 Ml Infus..Btl IV 04/23/25 00:56 75 ml ONCE ONE Administration Ketorolac Tromethamine 15 mg 04/22/25 22:31 04/22/25 22:47 Ketorolac Tromethamine 15 Mg/Ml Vial IVPUSH 04/22/25 22:32 15 mg ONCE ONE Administration Medical Decision Making Medical Decision Making MDM Narrative: 11:38 PM 04/22/2025 (Orestes MÁRQUEZ): The patient is a 44-year-old female with a histor of hypothyroidism, with a admitted recent noncompliance with her medication, presenting to the ED for evaluation of chest tightness and shortness of breath which began this evening. The patient reports she has been experiencing severe fatigue and malaise over the past few days, this evening however was lying down when she developed pleuritic substernal chest pain radiating into her back with the associated shortness of breath and sensation of inability to take a full breath. The patient reports associated nonproductive cough, denies associated hemoptysis, fever/chills, nausea, vomiting, diaphoresis, abdominal pain, dysuria, hematuria, irregular vaginal bleeding, constipation, diarrhea, hematochezia, or melena. The patient reports last week she was experiencing UTI type symptoms and took antibiotics she had ?left over? from a previous UTI. Patient reports her symptoms resolved and she was feeling back to baseline prior to feeling unwell the past few days. The patient denies any recent sick contacts, denies fall or other trauma. The patient denies recent travel, lower extremity complaint, or history of coagulopathy. In the ED patient is well-appearing, in no acute distress, vital signs stable, exam is reassuring, no adventitious lung sounds. The patient reports pain with deep respiration which is not reproducible by direct palpation. Patient's EKG is nonischemic, initial troponin is negative. The patient's laboratory evaluation shows no leukocytosis, significant anemia, electrolyte abnormality, or MICKEY. The patient's LFTs are unremarkable. Patient's viral swabs also negative for COVID or influenza. Chest x-ray shows no focal consolidation. Following patient interview, a D-dimer, urinalysis, repeat troponin, and TSH were added. The repeat troponin is negative, urinalysis shows no evidence of infection, TSH is pending, however D-dimer is marginally positive. The patient will be sent for CTA chest to rule out PE. If no evidence of PE or other acute intrathoracic finding on CT, an unremarkable TSH, the patient is likely suffering from a viral syndrome and will be discharged to follow up with PCP. 2:22 AM 04/23/2025 (Orestes MÁRQUEZ): Patient's CTA is negative for PE. TSH is elevated but T4 is normal. Patient remains hemodynamically stable, afebrile. Patient a be suffering from viral syndrome, however no emergent pathology identified. The patient will be discharged to follow up with PCP. Admission/Observation Consideration of admission/observation: Escalation of care including admission/observation considered Lab Data MDM Lab Attestation statement: I reviewed the patient's lab results. 04/22/25 20:47 04/22/25 20:47 Labs: Lab Results 04/22/25 04/22/25 04/22/25 Range/Units 20:47 21:07 22:47 WBC 8.4 (4.8-10.8) X10*3/uL RBC 3.74 L (4.20-5.50) X10*6/uL Hgb 11.5 L (12.0-16.0) g/dl Hct 33.0 L (37.0-47.0) % MCV 88.2 (80.0-98.0) fL MCH 30.7 (27.0-33.0) pg MCHC 34.8 (31.0-35.0) g/dl RDW 13.1 (11.0-16.0) % Plt Count 198 (160-400) X10*3/uL MPV 9.4 (9.4-12.3) fL Immature Gran % (Auto) 0.2 (0.0-0.4) % Neut % (Auto) 51.2 (45-73) % Lymph % (Auto) 41.3 H (20-40) % Calhoun % (Auto) 6.1 (2-11) % Eos % (Auto) 0.8 (0-4) % Baso % (Auto) 0.4 (0-2) % Lymph # (Auto) 3.5 (1.2-4.9) X10*3/uL [place]houn # (Auto) 0.5 (0.1-1.2) X10*3/uL Eos # (Auto) 0.1 (0.0-0.4) X10*3/uL Baso # (Auto) 0.0 (0.0-0.2) X10*3/uL Abs Immat Gran (auto) 0.02 (0.00-0.03) X10*3/uL Absolute Neuts (auto) 4.3 (2.0-8.3) x10*3/uL Absolute Nucleated RBC 0.000 (0.0-0.012) X10*3/uL Nucleated RBC % (auto) 0.0 (0.0-0.2) /100WBC D-Dimer High Sensitivty 254 NG/ML Sodium 141 (135-145) mmol/L Potassium 3.9 (3.3-5.1) mmol/L Chloride 106 (96-108) mmol/L Carbon Dioxide 29 (22-29) mmol/L Anion Gap 10 L (12-20) BUN 14 (9-16) mg/dL Creatinine 0.75 (0.5-1.4) mg/dL Estim Creat Clear Calc 92.1 Estimated GFR > 60 Random Glucose 101 (60-115) mg/dL Calcium 9.3 (8.4-10.2) mg/dL Total Bilirubin 0.5 (0.0-1.0) mg/dL AST 25 (5-31) U/L ALT 23 (0-31) U/L Alkaline Phosphatase 42 (39-117) U/L Troponin I High Sens < 2.7 < 2.7 (<3.5-17.0) ng/L Total Protein 7.1 (6.5-8.0) g/dL Albumin 4.2 (3.5-5.0) g/dL TSH 8.13 H Cancelled (0.32-4.0) uIU/mL Free T4 0.86 (0.71-1.85) ng/dL Beta HCG, Quant < 2 mIU/mL Urine Color Yellow Urine Appearance Clear Urine pH 6.0 (5.0-9.0) Ur Specific Newton 1.010 (1.005-1.025) Urine Protein Negative (Neg-Trace) mg/dL Urine Glucose (UA) Negative (Negative) mg/dL Urine Ketones Negative (Negative) mg/dL Urine Blood Negative (Negative) Urine Nitrite Negative (Negative) Ur Leukocyte Esterase Negative (Negative) COVID-19 (SANTO) Negative (Negative) COVID-19 Clin Com See Note Influenza Type A (FREDY) Negative (Negative) Influenza Type B (FREDY) Negative (Negative) Influenza A & B Note See Note Independent Interpretation I performed an independent interpretation of an: EKG (EKG shows sinus rhythm with a rate of 71, no evidence of acute ischemia, no ST elevation, no ectopy. QTC 415. Compared to previous on 08/31/2024 there are no significant morphology changes.) Radiology Impression Discussion of test interpretation with radiology: I have reviewed the radiologist's reading. Radiologist Impression: CLINICAL HISTORY: SOB 1 view chest x-ray Comparison: CR - XR CHEST 2V - 08/31/24 18:20 EST Findings: The lungs are clear. Normal size heart. No acute fracture. IMPRESSION: 1. No acute findings. This document has been electronically signed by: Evens Nogueira MD on 04/22/2025 21:48:55 CT angiography chest with contrast. 3D Postprocessing. Comparison: CR - XR CHEST 1V - 04/22/25 21:13 EDT CR - XR CHEST 2V - 08/31/24 18:[address]/IN/SR - ABD PELVIS WO CONT [id number] - 10/02/18 00:55 EST Findings: The heart size is normal. RV/LV ratio is normal. The thoracic aorta is normal caliber. No pulmonary artery filling defects. The visualized thyroid and mediastinum are unremarkable. The lungs are clear. The visualized upper abdomen is unremarkable. The bones are intact. IMPRESSION: 1. No pulmonary emboli. This document has been electronically signed by: Evens Nogueira MD on 04/23/2025 02:08:51 External Record Review External record reviewed: Outpatient record and Prior outpatient labs Prescription Management I considered prescription management with: Pain Medication and Antibiotic Discharge Plan Discharge Clinical Impression: Atypical chest pain, Acute viral syndrome Patient Disposition: Home, Self-Care Instructions: Viral Syndrome (ED), Noncardiac Chest Pain (ED) Additional Instructions: Thank you for choosing [facility]'s Emergency Department for your care today. Thankfully your laboratory evaluation, urinalysis, chest x-ray, chest CT, EKG, and exam today are all reassuring. There was no evidence of any acute cardiac, infectious, pulmonary, metabolic, coagulopathic (blood clot), or other dangerous cause for your symptoms. At this time there is no indication for admission to the hospital or continued ED observation, and it is safe to discharge you home. Your testing for COVID and influenza was negative, your TSH was elevated however your actual thyroid hormone was within normal limits. Is not entirely clear what is causing your symptoms however the most likely cause is a viral illness causing your fatigue, chest tightness, and cough. You showed take alternating (staggered) doses of ibuprofen 600mg and Tylenol 1000mg every 4 hours as needed for any additional pain or fever. Please stay well hydrated and get plenty of rest. Please follow up with your primary care physician for re-evaluation, additional management of your symptoms, and continued preventative care. If you do not have a primary care physician, please call the [facility] at [phone] to establish a new primary care physician. While waiting to establish your new primary care physician, you can call our [facility] at [phone] for non-emergency needs. Please return to the emergency department if you develop a severe or sudden change in your symptoms, a fever over 100.4 that does not improve with Tylenol or Ibuprofen, recurrent vomiting, or any other new or worsening symptoms or concerns. Referrals: Katherine Quijano NP [Primary Care Provider, [facility]] Clinical Impression: Acute viral syndrome; Atypical chest pain Interventions: ED Discharge Assessment Last Done: 04/23/25 02:36 Discharge Date/Time: 04/23/25 02:39 Print Language: Bengali
[2025-04-22 22:42] VITALS: BP 125/77; PULSE 70; RESP 14; O2SAT 100
[2025-04-22 22:56] LABS: Appearance Urine Clear; Glucose Urine UA Negative (Negative); PH 6.0 (5.0-9.0); Specific Gravity - Urine 1.010 (1.005-1.025)
[2025-04-22 23:07] LABS: D Dimer High Sensitivity 254 NG/ML
[2025-04-22 23:16] LABS: Troponin-I High Sensitivity < 2.7 ng/L (<3.5-17.0)
[2025-04-22 23:38] VITALS: BP 125/77; PULSE 77; RESP 16
[2025-04-22 23:39] VITALS: BP 125/77; PULSE 77; RESP 18; O2SAT 96
[2025-04-23 00:31] LABS: Free T4 (Free Thyroxine) 0.86 ng/dL (0.71-1.85)
[2025-04-23] MEDS: iohexoL 350 MG/ML 100 ML INFUS..BTL 75 ML IV (00:56)
[2025-04-23 00:59] VITALS: BP 112/52; PULSE 67; RESP 14; TEMP 36.7; O2SAT 96
[2025-04-23 02:36] VITALS: BP 112/52; PULSE 67; RESP 14; TEMP 36.7; O2SAT 96
== END 2025-04-23 02:39 | disposition home or self-care (01) ==
PROVIDERS: Physician Assistant; Emergency Provider Emergency Medicine; PCP Nurse Practitioner Family
DX: B34.9 Viral infection, unspecified (principal); R07.89 Other chest pain; R53.83 Other fatigue; R11.0 Nausea; R10.2 Pelvic and perineal pain; Z91.148 Patient's other noncompliance with medication regimen for other reason; Z11.52 Encounter for screening for COVID-19
CPT/HCPCS: 36415; 71045; 71275; 80053; 81003; 84439; 84443; 84484; 84702; 85025; 85379; 87502; 87635; 93005; 96361; 96374; 99285; J1885; Q9967

== ENCOUNTER → 2025-04-22 20:41 | Outpatient (BNV) | payer BC, SELFPAY | PROVIDERS: Emergency Provider Emergency Medicine; PCP Nurse Practitioner Family; Visit Provider Internal Medicine | DX: R07.89 Other chest pain (principal) | CPT/HCPCS: 93010 ==

== ENCOUNTER → 2025-04-22 21:13 | Outpatient (BNV) | payer BC, SELFPAY | PROVIDERS: PCP Nurse Practitioner Family; Visit Provider Student in an Organized Health Care Education/Training Program | DX: R06.02 Shortness of breath (principal) | CPT/HCPCS: 71045 ==

== ENCOUNTER → 2025-04-23 00:01 | Outpatient (BNV) | payer BC, SELFPAY | PROVIDERS: Emergency Provider Emergency Medicine; PCP Nurse Practitioner Family; Visit Provider Student in an Organized Health Care Education/Training Program | DX: R06.02 Shortness of breath (principal); R79.1 Abnormal coagulation profile | CPT/HCPCS: 71275 ==

== ENCOUNTER 2025-07-19 23:21 | Emergency (ER) | payer BC, SELFPAY ==
--- NOTE | ~2025-07-19 | XR_ITS ---
CLINICAL HISTORY: pain constipation? 1 view abdomen Comparison: CT of the abdomen from 10/02/2018 Findings: Mild bibasilar atelectasis/pneumonitis of the imaged lung bases. No small bowel dilatation or definite small bowel obstruction in the imaged abdomen. Mild-moderate stool burden by radiographs. Multiple phleboliths are noted in the pelvis. Facet arthropathy suggested of the imaged lumbosacral junction. No definite acute displaced fracture by frontal radiographs. IMPRESSION: 1. No small bowel obstruction. 2. Mild-moderate stool burden by one view x-ray This document has been electronically signed by: Rolf Redd MD on 07/20/2025 03:03:34
[2025-07-19 23:32] VITALS: BP 115/65; PULSE 108; RESP 20; TEMP 36.7; O2SAT 97; BMI 28.3
[2025-07-20 00:20] LABS: Hematocrit 36.9 % (37.0-47.0); Hemoglobin 12.6 g/dl (12.0-16.0); Imm Gran Abs Auto 0.02 X10*3/uL (0.00-0.03); Imm Gran Pct Auto 0.2 % (0.0-0.4); Lymphocytes Absolute Auto 2.2 X10*3/uL (1.2-4.9); MANUAL DIFF FLAG NO; Mean Corpuscular HGB Conc 34.1 g/dl (31.0-35.0); Mean Corpuscular Hemoglobin 29.9 pg (27.0-33.0); Mean Corpuscular Volume 87.6 fL (80.0-98.0); NRBC Abs Auto 0.000 X10*3/uL (0.0-0.012); NRBC Pct Auto 0.0 /100WBC (0.0-0.2); Platelet Count 229 X10*3/uL (160-400); Red Blood Count 4.21 X10*6/uL (4.20-5.50); White Blood Count 8.9 X10*3/uL (4.8-10.8)
[2025-07-20 00:38] LABS: Alanine Aminotransferase 16 U/L (0-31); Albumin Level 4.3 g/dL (3.5-5.0); Alkaline Phosphatase 41 U/L (39-117); Anion Gap 13 (12-20); Aspartate Amino Transferase 21 U/L (5-31); Blood Urea Nitrogen 13 mg/dL (9-16); Calcium 9.0 mg/dL (8.4-10.2); Carbon Dioxide 27 mmol/L (22-29); Chloride 108 mmol/L (96-108); Creatinine Clr Calc Pharmacy 96.6; Estimated Glomerular Filt Rate > 60; Lipase 16 U/L (8-78); Potassium 3.6 mmol/L (3.3-5.1); Sodium 144 mmol/L (135-145); Total Protein 7.1 g/dL (6.5-8.0)
[2025-07-20 01:05] VITALS: BP 107/80; PULSE 103; RESP 18; TEMP 36.8; O2SAT 98
--- NOTE | 2025-07-20 01:13 | ED_ITS ---
HPI - General Adult General Chief complaint: Abdominal Pain Stated complaint: abd pain, n/v/d Time Seen by Provider: 07/20/25 01:06 Source: patient Limitations: no limitations History of Present Illness ED Provider: Syeda Frazier PA-C HPI narrative: 44-year-old female presents with epigastric pain since this morning. Associated nausea vomiting diarrhea. Pain described as a burning sensation that becomes severe. Denies concurrent sick contacts with same symptoms. Denies use of antibiotics, recent hospitalization or travel. Patient states she also thinks she may be constipated. Denies abdominal distention or inability to pass flatus. No fevers. Related Data Previous Rx's ?Medication ?Instructions ?Recorded ondansetron 4 mg disintegrating 4 mg PO Q8H PRN nausea and 07/20/25 tablet vomiting #10 tabs sucralfate 1 gram tablet (Carafate) 1 g PO TID PRN dys pepsia #15 tabs 07/20/25 Allergies Allergy/AdvReac Type Severity Reaction Status Date / Time cephalexin (From Keflex) Allergy Nausea and Verified 07/19/25 23:35 Vomiting Review of Systems 2 Review of Systems: Yes all other systems are reviewed and are negative Constitutional: Constitutional: Denies fatigue and Denies fever(s) Cardiovascular: Cardiovascular: Denies chest pain and Denies dyspnea Respiratory: Respiratory: Denies dyspnea Gastrointestinal: Gastrointestinal: Reports abdominal pain, Reports constipation, Reports dyspepsia, Reports diarrhea, Reports nausea and Reports vomiting Endocrine: Endocrine: Denies fatigue PMFSH Past Medical History Attestation statement: The following information was validated with the patient. Medical History Hypothyroid Social History Social History Smoked in Last 30 Days: No Use of substances other than those prescribed or required for medical reasons: No Advance Directives: No Advance Directives Information Provided: No Do you have a plan to hurt others: No Plan Patient : No Physical Exam ED Vital Signs: Vital Signs - 24 hr 07/19/25 23:32 07/20/25 01:05 Temperature 98.1 F 98.2 F Pulse Rate 108 H 103 H Respiratory Rate 20 18 Blood Pressure 115/65 107/80 Pulse Oximetry 97 98 Oxygen Delivery Method Room Air Room Air BMI result Body Mass Index 28.3 Const Other: Alert well-appearing Orientation/consciousness: patient oriented x3 Resp Effort & Inspection: normal respiratory effort Cardio Other: Normal peripheral perfusion GI Other: Abdomen is soft, nondistended, mild tenderness epigastric no guarding Skin Other: Warm dry no rash Neuro General: patient oriented x3, gait normal, no focal motor deficits and CN's II- XI intact bilaterally Psych Other: Cooperative Medications Administered Discontinued Medications Generic Name Dose Route Start Last Admin Trade Name Jovanny PRN Reason Stop Dose Admin Famotidine 20 mg 07/20/25 01:24 07/20/25 01:34 Famotidine/Pf 20 Mg/2 Ml Vial IVPUSH 07/20/25 01:25 20 mg ONCE ONE Administration Sodium Chloride 1,000 mls @ 999 mls/hr 07/20/25 01:30 07/20/25 03:03 Ns IV 07/20/25 02:30 Infused .Q1H1M JIMY Infusion Ondansetron HCl 4 mg 07/20/25 01:24 07/20/25 01:34 Ondansetron Hcl 4 Mg/2 Ml Vial IVPUSH 07/20/25 01:25 4 mg ONCE ONE Administration Sucralfate 1 gm 07/20/25 02:21 07/20/25 03:14 Sucralfate Oral Suspension 1 Gm/10 Ml Oral.Susp PO 07/20/25 02:22 1 gm ONCE ONE Administration Medical Decision Making Medical Decision Making MDM Narrative: 44-year-old female presents with epigastric pain since this morning. Associated nausea vomiting diarrhea. Pain described as a burning sensation that becomes severe. Denies concurrent sick contacts with same symptoms. Denies use of antibiotics, recent hospitalization or travel. Patient states she also thinks she may be constipated. Denies abdominal distention or inability to pass flatus. No fevers. No chronic issues that are relevant History: Per patient I have considered the following differential diagnoses: Biliary colic, cholecystitis, gastritis/GERD, pancreatitis, viral gastroenteritis, traveler's diarrhea, C diff Plan: Patient here with dyspepsia, she also may be constipated despite stating she is having diarrhea. This could also be viral gastroenteritis. We will be giving fluid Carafate famotidine and Zofran adding on a KUB. She has no obstructive symptoms, she does not warrant advanced imaging. Her labs were completely stable, including LFTs and lipase. She also has no focal either right upper or left upper abdominal discomfort to suggest underlying biliary pathology or pancreatic pathology. She also has no risk factors for traveler's diarrhea or C diff . A viral panel was also added on I have independently reviewed the following tests: Labs: No leukocytosis, not anemic, no electrolyte abnormality, LFTs normal lipase normal, viral panel negative KUB:Findings: Mild bibasilar atelectasis/pneumonitis of the imaged lung bases. No small bowel dilatation or definite small bowel obstruction in the imaged abdomen. Mild-moderate stool burden by radiographs. Multiple phleboliths are noted in the pelvis. Facet arthropathy suggested of the imaged lumbosacral junction. No definite acute displaced fracture by frontal radiographs. IMPRESSION: 1. No small bowel obstruction. 2. Mild-moderate stool burden by one view x-ray Differential Diagnosis Differential Diagnoses: The differential diagnosis associated with the presentation includes See [facility] Admission/Observation Consideration of admission/observation: Escalation of care including admission/observation considered Not applicable Lab Data [facility] Lab Attestation statement: I reviewed the patient's lab results. 07/20/25 00:13 07/20/25 00:13 Labs: Lab Results 07/20/25 07/20/25 Range/Units 00:13 02:39 WBC 8.9 (4.8-10.8) X10*3/uL RBC 4.21 (4.20-5.50) X10*6/uL Hgb 12.6 (12.0-16.0) g/dl Hct 36.9 L (37.0-47.0) % MCV 87.6 (80.0-98.0) fL MCH 29.9 (27.0-33.0) pg MCHC 34.1 (31.0-35.0) g/dl RDW 12.6 (11.0-16.0) % Plt Count 229 (160-400) X10*3/uL MPV 9.1 L (9.4-12.3) fL Immature Gran % (Auto) 0.2 (0.0-0.4) % Neut % (Auto) 68.3 (45-73) % Lymph % (Auto) 24.3 (20-40) % Nye % (Auto) 6.5 (2-11) % Eos % (Auto) 0.6 (0-4) % Baso % (Auto) 0.1 (0-2) % Lymph # (Auto) 2.2 (1.2-4.9) X10*3/uL Nye # (Auto) 0.6 (0.1-1.2) X10*3/uL Eos # (Auto) 0.1 (0.0-0.4) X10*3/uL Baso # (Auto) 0.0 (0.0-0.2) X10*3/uL Abs Immat Gran (auto) 0.02 (0.00-0.03) X10*3/uL Absolute Neuts (auto) 6.1 (2.0-8.3) x10*3/uL Absolute Nucleated RBC 0.000 (0.0-0.012) X10*3/uL Nucleated RBC % (auto) 0.0 (0.0-0.2) /100WBC Sodium 144 (135-145) mmol/L Potassium 3.6 (3.3-5.1) mmol/L Chloride 108 (96-108) mmol/L Carbon Dioxide 27 (22-29) mmol/L Anion Gap 13 (12-20) BUN 13 (9-16) mg/dL Creatinine 0.72 (0.5-1.4) mg/dL Estim Creat Clear Calc 96.6 Estimated GFR > 60 Random Glucose 107 (60-115) mg/dL Calcium 9.0 (8.4-10.2) mg/dL Total Bilirubin 0.8 (0.0-1.0) mg/dL AST 21 (5-31) U/L ALT 16 (0-31) U/L Alkaline Phosphatase 41 (39-117) U/L Total Protein 7.1 (6.5-8.0) g/dL Albumin 4.3 (3.5-5.0) g/dL Lipase 16 (8-78) U/L Influenza Type A (PCR) NEGATIVE (Negative) Influenza Type B (PCR) NEGATIVE (Negative) RSV RNA Qual (PCR) NEGATIVE (Negative) SARS-CoV-2 RNA (RT-PCR) NEGATIVE (Negative) Radiology Impression Discussion of test interpretation with radiology: I have reviewed the radiologist's reading. Discharge Plan Discharge Clinical Impression: Constipation, GERD (gastroesophageal reflux disease) Patient Disposition: Home, Self-Care Instructions: Constipation (ED), GERD (Gastroesophageal Reflux Disease) (ED) Additional Instructions: You were found to be constipated, this can cause acid reflux symptoms and nausea. See home care instructions. Purchase [id number] Colace, take it twice a day, purchase [id number] MiraLax, take it multiple times a day, up to every hour, until you begin having multiple large volume bowel movements. Use the Carafate as needed for upper abdominal discomfort, uses Zofran as needed for nausea vomiting. Follow up with primary care as needed. Prescriptions: New ondansetron 4 mg tablet,disintegrating 4 mg PO Q8H PRN (Reason: nausea and vomiting) Qty: 10 0RF sucralfate [Carafate] 1 gram tablet 1 g PO TID PRN (Reason: dyspepsia) Qty: 15 0RF Print Language: Czech
--- OUTSIDE RECORDS SUMMARY | 2025-07-20 02:20 | XMS_ITS | Clinical Summary ---
Author Organization [address] [facility] Address [address] [place] [address] Phone Care Team Providers Care Aerodynamicist Name Role Phone Physician, Pcp Unknown Primary Care Provider Pauly vailable Encounters Date Type Department Care Team Description 06/26/2025 Lab Requisition [facility] [address] [place] [address] Elvia Buckley MD Encounter for gynecological examination (general) (routine) without abnormal findings 06/25/2025 Lab Requisition [facility] [address] [place] [address] Elvia Buckley MD Encounter for screening for infections with a predominantly sexual mode of transmission from Last 3 Months Social History Tobacco Use Types Packs/Day Years Used Date Smoking Tobacco: Never Assessed Comments Unknown Sex and Gender Information Value Date Recorded Sex Assigned at Not on file Legal Sex Female 12:44 PM EST Gender Identity Not on file Sexual Orientation Not on file Plan of Treatment Health Maintenance Due Date Last Done Comments Breast Cancer Screening 1978 Colorectal Cancer Screening: Colonoscopy 1978 DTaP,Tdap,and Td Vaccines (1 - Tdap) 1997 Hepatitis B Vaccines (1 of 3 - 19+ 3-dose series) 1997 Depression Screening 08/06/2024 COVID-19 Vaccine ( - 2024-2 6 season) 2025 Influenza Vaccine (#1) 2025 HIV Screening 06/25/2025 Hepatitis C Screening 06/25/2025 Social Influencers of Health Screening 06/25/2025 Cervical Cancer Screening: HPV 06/25/2030 06/25/2025 RSV Immunization Adult Patie nts (1 - 1-dose 75+ series) 2053 HIB Vaccines Aged Out No longer eligi ble based on patient's age to complete this topic HPV Vaccines Aged Out No longer eligi ble based on patient's age to complete this topic Hepatitis A Vaccines Aged Out No long er eligible based on patient's age to complete this topic IPV Vaccines Aged Out No longer eligi ble based on patient's age to complete this topic MMR Vaccines Aged Out No longer eligi ble based on patient's age to complete this topic Meningococcal ACWY Vaccine Aged Out N o longer eligible based on patient's age to complete this topic Meningococcal B Vaccine Aged Out No l onger eligible based on patient's age to complete this topic Pneumococcal Vaccine: Pediat rics (0 to 5 Years) and At-Risk Patients (6 to 49 Years) Aged Out No longer eligi ble based on patient's age to complete this topic RSV Immunization Patients Un thanh 20 months Aged Out No longer eligible b ased on patient's age to complete this topic Varicella Vaccines Aged Out No longer eligible based on patient's age to complete this topic Procedures Procedure Name Priority Date/Time Associated Diagnosis Comments PAP SMEAR Routine 06/25/2025 12:00 AM EST Encounter for gynecological examination (general) (routine) without abnormal findings HPV WITH REFLEX GENOTYPE Routine 06/25/2025 12:00 AM EST Encounter for gynecological examination (general) (routine) without abnormal findings CHLAMYDIA TRACHOMATIS AND NEISSERIA GONORRHOEAE PCR Routine 06/25/2025 12:00 AM EST Encounter for screening for infections with a predominantly sexual mode of transmission from Last 3 Months Results * HPV with reflex genotype (06/25/2025 12:00 AM EST) HPV Negative Negative LAB MICROBIOLOGY METHOD 06/26/2025 4:02 PM EST [facility] Brushing/Spatula Cervix uteri structure / Unknown 06/25/2025 06/26/2025 8:18 AM EST us Elvia Buckley MD LAB MOLECULAR DIAGNOSTIC S ORDERABLES Final Result [facility] [address] [place] [address], [place] [phone] * Chlamydia trachomatis and Neisseria gonorrhoeae molecular study (06/25/2025 12:00 AM EST) Neisseria gonorrhoeae PCR Negative Negative LAB MOLECULAR DIAGNOSTICS METHOD 06/25/2025 4:11 PM EST [facility] Chlamydia trachomatis PCR Negative Negative LAB MOLECULAR DIAGNOSTICS METHOD 06/25/2025 4:11 PM EST [facility] Swab Cervix uteri structure / Unknown 06/25/2025 06/25/2025 1:02 PM EST Elvia Buckley MD LAB MICROBIOLOGY - GENER AL ORDERABLES Final Result [facility] [address] [place] [address], [place] [phone] * Pap smear (06/25/2025 12:00 AM EST) Interpretation Negative for intraepithelial lesion or malignancy 06/29/2025 3:15 PM [facility] at 1515 EST General Categorization Negative 06/29/2025 3:15 PM [facility] Specimen Adequacy Satisfactory for evaluation, endocervical/richards sformation zone component absent 06/29/2025 3:15 PM [facility] Pap Methodology Liquid Based Pap Test 06/29/2025 3:15 PM [facility] Disclaimer The Pap test is a screening test which carries an inherent false negative rate. These test results should be correlated with the patient's clinical findings and history. This Pap test was processed using an automated screening system. Technical cytopathology services provided by [facility], at [address] [place] [address] (CLIA # [id number]/Vinicio Clifford MD, Shift Mgr.) 06/29/2025 3:15 PM EST [facility] Console Pap Interpretation Reported 06/29/2025 3:15 PM EST [facility]) [facility] Brushing/Spatula Cervix uteri structure / Unknown 06/25/2025 06/26/2025 8:18 AM EST us Elvia Buckley MD LAB CYTOLOGY ORDERABLES Final Result [facility]) [facility] [address] [place] [address], from Last 3 Months Insurance [employer] Care Teams Aerodynamicist Relationship Specialty Start Date End Date Physician, Pcp Unknown PCP - General 06/25/25
--- OUTSIDE RECORDS SUMMARY | 2025-07-20 02:20 | XMS_ITS | Encounter Summary ---
Author Organization [facility] Address [address] [place] [address] Care Team Providers Care Orthotic Fitter Name Role Phone Physician, Pcp Unknown Primary Care Provider Pauly vailable Encounter Details Date Type Department Care Team (Latest Contact Info) Description 06/25/2025 Lab Requisition [facility] [address] [place] [address] Elvia Buckley MD [address] [phone] Encounter for screening for infections with a predominantly sexual mode of transmission Social History Tobacco Use Types Packs/Day Years Used Date Smoking Tobacco: Never Assessed Comments Unknown Sex and Gender Information Value Date Recorded Sex Assigned at Not on file Legal Sex Female 12:44 PM EST Gender Identity Not on file Sexual Orientation Not on file documented as of this encounter Plan of Treatment Not on file documented as of this encounter Procedures Procedure Name Priority Date/Time Associated Diagnosis Comments CHLAMYDIA TRACHOMATIS AND NEISSERIA GONORRHOEAE PCR Routine 06/25/2025 12:00 AM EST Encounter for screening for infections with a predominantly sexual mode of transmission documented in this encounter Results * Chlamydia trachomatis and Neisseria gonorrhoeae molecular study (06/25/2025 12:00 AM EST) Neisseria gonorrhoeae PCR Negative Negative LAB MOLECULAR DIAGNOSTICS METHOD 06/25/2025 4:11 PM EST [facility] Chlamydia trachomatis PCR Negative Negative LAB MOLECULAR DIAGNOSTICS METHOD 06/25/2025 4:11 PM EST [facility] Swab Cervix uteri structure / Unknown 06/25/2025 06/25/2025 1:02 PM EST us Elvia Buckley MD LAB MICROBIOLOGY - GENER AL ORDERABLES Final Result [facility] [address] [place] [address], documented in this encounter Visit Diagnoses Diagnosis Encounter for screening for infections with a predominantly sexual mode of transmission documented in this encounter Care Teams Orthotic Fitter Relationship Specialty Start Date End Date Physician, Pcp Unknown PCP - General 06/25/25 documented as of this encounter
--- OUTSIDE RECORDS SUMMARY | 2025-07-20 02:20 | XMS_ITS | Encounter Summary ---
Author Organization [facility] Address [address] [place] [address] Care Team Providers Care Director Industrial Relations Name Role Phone Physician, Pcp Unknown Primary Care Provider Pauly vailable Encounter Details Date Type Department Care Team (Latest Contact Info) Description 06/26/2025 Lab Requisition [facility] Lab [address] [place] [address] Elvia Buckley MD [address] [address] Encounter for gynecological examination (general) (routine) without abnormal findings Social History Tobacco Use Types Packs/Day Years [...] Procedure Name Priority Date/Time Associated Diagnosis Comments HPV WITH REFLEX GENOTYPE Routine 06/25/2025 12:00 AM EST Encounter for gynecological examination (general) (routine) without abnormal findings PAP SMEAR Routine 06/25/2025 12:00 AM EST Encounter for gynecological examination (general) (routine) without abnormal findings documented in this encounter Results * HPV with reflex genotype (06/25/2025 12:00 AM EST) HPV Negative Negative LAB MICROBIOLOGY METHOD 06/26/2025 4:02 PM EST [facility] Brushing/Spatula Cervix uteri structure / Unknown 06/25/2025 06/26/2025 8:18 AM EST Elvia Buckley MD LAB MOLECULAR DIAGNOSTIC S ORDERABLES Final Result Performing Organization Address City/[facility]/ZIP Co de Phone Number [facility] [address] [place] [address], [place] [phone] * Pap smear (06/25/2025 12:00 AM EST) Interpretation Negative for intraepithelial lesion or malignancy 06/29/2025 3:15 PM EST [facility] at 1515 EST General Categorization Negative 06/29/2025 3:15 PM [facility] Specimen Adequacy Satisfactory for evaluation, endocervical/richards sformation zone component absent 06/29/2025 3:15 PM [facility] Pap Methodology Liquid Based Pap Test 06/29/2025 3:15 PM [facility] Disclaimer The Pap test is a screening test which carries an inherent false negative rate. These test results should be correlated with the patient's clinical findings and history. This Pap test was processed using an automated screening system. Technical cytopathology services provided by [facility], at [address] [place] [id number] (CLIA # [id number]/Vinicio Clifford MD, Command Center Officer.) 06/29/2025 3:15 PM [facility] Console Pap Interpretation Reported 06/29/2025 3:15 PM [facility] Brushing/Spatula Cervix uteri structure / Unknown 06/25/2025 06/26/2025 8:18 AM EST us Elvia Buckley MD LAB CYTOLOGY ORDERABLES Final Result Performing Organization Address City/[facility]/ZIP Co de Phone Number [facility] [address] [place] [address], [place] [phone] documented in this encounter Visit Diagnoses Diagnosis Encounter for gynecological examination (general) (routine) without abnormal findings documented in this encounter Care Teams Director Industrial Relations Relationship Specialty Start Date End Date Physician, Pcp Unknown PCP - General 06/25/25 documented as of this encounter
[2025-07-20] MEDS: Sucralfate Oral Suspension 1 GM/10 ML ORAL.SUSP PO (03:14)
[2025-07-20 03:25] LABS: Resp Syncy Virus RNA Qual PCR NEGATIVE (Negative); SARS COV2 PCR INHOUSE NEGATIVE (Negative)
[2025-07-20 03:48] VITALS: BP 107/76; PULSE 85; RESP 18; TEMP 36.9; O2SAT 98
== END 2025-07-20 03:50 | disposition home or self-care (01) ==
PROVIDERS: Physician Assistant Medical; Emergency Provider Emergency Medicine; PCP Nurse Practitioner Family
DX: K59.00 Constipation, unspecified (principal); K21.9 Gastro-esophageal reflux disease without esophagitis; R10.13 Epigastric pain; R11.2 Nausea with vomiting, unspecified; R19.7 Diarrhea, unspecified; Z03.818 Encounter for observation for suspected exposure to other biological agents ruled out
CPT/HCPCS: 36415; 74018; 80053; 83690; 85025; 87637; 96361; 96374; 96375; 99284; J1308; J2405

== ENCOUNTER → 2025-07-20 01:24 | Outpatient (BNV) | payer BC, SELFPAY | PROVIDERS: Emergency Provider Emergency Medicine; PCP Nurse Practitioner Family; Visit Provider Radiology Neuroradiology | DX: R10.9 Unspecified abdominal pain (principal) | CPT/HCPCS: 74018 ==